=== PATIENT | female | born 1970 | race Caucasian/White ===

== ENCOUNTER 2024-05-03 09:50 | Outpatient (CLI) | payer BC, SELFPAY ==
--- NOTE | 2024-05-03 09:56 | ECHO_ITS ---
Patient Info Name: Irma Lundy Age: 54 years : 1970 Gender: Female Ht: 67 in Wt: 205 lbs BSA: 2.13 m2 HR: 65 bpm BP: 115 / 72 mmHg Heart Rhythm: Sinus Rhythm Technical Quality: Good Exam Date: 05/03/2024 10:19 AM Exam Location: Echo Lab Patient Status: Outpatient Admit Date: 05/03/2024 Staff Ordering Physician: Geneva Alcala PAC Aircraft Designer: Criselda Carrillo RDCS Attending Provider: Geneva Alcala Referring Physician: Fredrick BULLARD; Exam Type: CA echo doppler color flow Study Info Indications - chest pain, unsp Complete two-dimensional, color flow and Doppler transthoracic echocardiogram is performed. Summary 1. Complete two-dimensional, color flow and Doppler transthoracic echocardiogram is performed. 2. Left ventricular chamber dimension is normal. 3. Left ventricular systolic function is normal, estimated at 60-65%. 4. The left ventricular diastolic function is normal. 5. E/e' 7 is not elevated. 6. Left atrial chamber dimension is mildly enlarged. 7. There is mild aortic valve sclerosis. 8. The mitral valve has mildly calcified annulus. 9. No pulmonary hypertension, estimated pulmonary arterial systolic pressure is 17 mmHg. Left Ventricle E/e' 7 is not elevated. Left ventricular chamber dimension is normal. Left ventricular systolic function is normal, estimated at 60-65%. The left ventricular diastolic function is normal. Right Ventricle Right ventricular chamber dimension is normal. Right ventricular systolic function is normal and with normal TAPSE 2.8 cm. Left Atria Left atrial chamber dimension is mildly enlarged. Right Atria Right atrial chamber dimension is normal. Aortic Valve The aortic valve is trileaflet. There is mild aortic valve sclerosis. There is no aortic valve stenosis. There is no aortic valve regurgitation. Pulmonic Valve There is no pulmonic regurgitation. Mitral Valve The mitral valve has mildly calcified annulus. There is no mitral valve stenosis. There is no mitral valve regurgitation. Tricuspid Valve There is no tricuspid valve regurgitation. No pulmonary hypertension, estimated pulmonary arterial systolic pressure is 17 mmHg. Pericardium/Pleural There is no pericardial effusion. Inferior Vena Cava Normal inferior vena cava with >50% collapse upon inspiration consistent with normal right atrial pressure, 5 mmHg. Aorta The aortic root size at the sinus of Valsalva is normal. Left Ventricular Outflow Tract Name Value Normal LVOT 2D LVOT Diameter 1.9 cm LVOT Doppler LVOT Peak Gradient 4 mmHg LVOT Mean Gradient 2 mmHg LVOT VTI 24 cm LVOT VTI/AV VTI Ratio 0.9 LVOT Stroke Volume 71 ml LVOT CO 4.2 l/min LVOT CI 2.0 l/min/m2 Pulmonic Valve Name Value Normal PV Doppler PV Peak Gradient 2 mmHg Mitral Valve Name Value Normal MV Doppler MV Decel Estill 349 cm/s2 MV PHT 67 ms MV Area (PHT) 3.3 cm2 4.0-5.0 MV Diastolic Function MV E Peak Velocity 81 cm/s MV A Peak Velocity 66 cm/s MV E/A 1.2 MV Decel Time 232 ms MV Annular TDI MV E/e' (Septal) 8.8 <=8.0 MV E/e' (Lateral) 7.2 <=8.0 MV E/e' (Average) 8.0 Tricuspid Valve Name Value Normal TV Regurgitation Doppler TR Peak Velocity 177 cm/s TR Peak Gradient 12 mmHg Estimated PAP/RSVP RA Pressure 5 mmHg <=5 PA Systolic Pressure 17 mmHg <36 RV Systolic Pressure 17 mmHg <36 Aortic Valve Name Value Normal AV Doppler AV Peak Velocity 154 cm/s AV Peak Gradient 9 mmHg AV Mean Gradient 5 mmHg AV VTI 28 cm AV Area (Cont Eq VTI) 2.5 cm2 >=3.0 AV Area (Cont Eq Sanjay) 1.9 cm2 AV Regurgitation 2D LVOT Area 2.9 cm2 Ventricles Name Value Normal LV Dimensions 2D/MM IVS Diastolic Thickness (2D) 1.0 cm 0.6-1.0 LVID Diastole (2D) 4.5 cm 3.8-5.2 LVIW Diastolic Thickness (2D) 0.9 cm 0.6-0.9 LVID Systole (2D) 2.9 cm 2.2-3.5 LVOT Diameter 1.9 cm LV Mass (2D Cubed) 141.43 g 67.00-162.00 LV Mass Index (2D Cubed) 66 g/m2 43-95 Relative Wall Thickness (2D) 0.42 LV Fractional Shortening/Ejection Fraction 2D/MM LV Fractional Shortening (2D) 35 % 27-45 LV EF (2D Teicholz) 65 % 54-74 LV Diastolic Volume (4C MOD) 77 ml LV EF (4C MOD) 58 % LV Diastolic Volume (2C MOD) 90 ml LV EF (2C MOD) 72 % LV Diastolic Volume (BP MOD) 84 ml 46-106 LV Diastolic Volume Index (BP MOD) 39 ml/m2 29-61 LV Systolic Volume (BP MOD) 30 ml 14-42 LV Systolic Volume Index (BP MOD) 14 ml/m2 8-24 LV EF (BP MOD) 65 % 54-74 LV Diastolic Length (4C) 7.6 cm LV Systolic Length (4C) 6.1 cm LV Stroke Volume (4C MOD) 45 ml Atria Name Value Normal LA Dimensions LA Volume (4C A-L) 35 ml LA Volume (BP A-L) 34 ml RA Dimensions RA Area (4C) 12.9 cm2 <=18.0 Report Signatures
== END 2024-05-03 09:51 | disposition home or self-care (01) ==
PROVIDERS: PCP Family Medicine; Visit Provider Physician Assistant Medical
DX: I35.8 Other nonrheumatic aortic valve disorders (principal); I34.81 Nonrheumatic mitral (valve) annulus calcification
CPT/HCPCS: 93306

== ENCOUNTER 2025-03-04 07:57 | Outpatient (CLI) | payer BC, SELFPAY ==
--- NOTE | ~2025-03-04 | US_ITS ---
US abdomen complete EXAMINATION: US Abdomen Complete INDICATION: Fatty infiltration of the liver. PROCEDURE: Realtime High Resolution abdomen ultrasound. COMPARISON: No prior studies for comparison FINDINGS: Gallbladder is surgically absent. Common bile duct measures mm. Liver echotexture is increased, consistent with fatty infiltration.. Pancreas within normal limits. Pancreatic tail is obscured by bowel gas. Spleen is enlarged measuring 15 cm.. Renal echotexture is within normal limits bilaterally without hydronephrosis, contour deforming mass or renal stone. Right kidney measures 11.3 cm. Left kidney measures 9.3 cm. Visualized aspects of the aorta and IVC are within normal limits. Portal vein is patent. No sonographic Cummins's sign indicated by the technologist. IMPRESSION: 1: Fatty infiltration of the liver. 2: Status post cholecystectomy. 3: Splenomegaly. Reviewed, dictated and finalized at location O.
== END 2025-03-04 07:58 | disposition home or self-care (01) ==
LOC: MICIMG 07:58
PROVIDERS: PCP Physician Assistant Medical; Visit Provider Physician Assistant Medical
DX: K76.0 Fatty (change of) liver, not elsewhere classified (principal); R94.5 Abnormal results of liver function studies; R16.1 Splenomegaly, not elsewhere classified; Z90.49 Acquired absence of other specified parts of digestive tract
CPT/HCPCS: 76700

== ENCOUNTER 2025-05-21 01:12 | Day surgery (SDC) | payer BC, SELFPAY ==
[2025-04-30 12:45] VITALS: BMI 37.0
--- OUTSIDE RECORDS SUMMARY | 2025-05-21 01:15 | XMS_ITS | Clinical Summary ---
Author Organization [facility] Address [address] [place] [address] Care Team Providers Care Wind Project Manager Name Role Phone Enedina Ugalde MD Primary Care Provider [phone] Source Comments [facility],non-owned Affiliates and Associated Physician Practices is amultiple site organization consisting of ambulatory clinics and hospital sitesin [place], [place], [place] and [place]. This disclosure is being madepursuant to the Care Everywhere program and may not contain all information available regarding this patient. Last updated 18.[facility] Allergies No known active allergies Medications * Be aware that medications may not be up to date on this document. Alwaysverify current medications with the patient. sertraline (ZOLOFT) 100 MG tablet Take 100 mg by mouth daily. Active multivitamin daily (THERAGRAN) tablet Take 1 Tab by mouth daily with food. Active SUMAtriptan Succinate (IMITREX PO) Take by mouth as needed. 07/09/2010 Active VITAMIN D PO Take by mouth every 7 days. 07/09/2010 Active buPROPion XL 24hr (WELLBUTRIN-XL) 150 MG tablet Take 150 mg by mouth once daily. Active Sod Picosulfate-Mag Ox-Cit Acd (CLENPIQ) 10-3.5-12 MG-GM -GM/160ML SOLNIndications :Screen for colon cancer Take 1 kit by mouth as directed 320 mL 08/22/2019 Active benazepril (LOTENSIN) 5 MG tablet Take 5 mg by mouth once daily Active Active Problems No known active problems Family History Medical History Relation Name Comments Hypercholesterolemia Father Hypertension Mother Thyroid Disease Sister Relation Name Status Comments Father Mother Sister Social History Tobacco Use Types Packs/Day Years Used Date Smoking Tobacco: Never Smokeless Tobacco: Never Alcohol Use Standard Drinks/Week Comments No 0 (1 standard drink = 0.6 oz pur e alcohol) Comments No Sex and Gender Information Value Date Recorded Sex Assigned at Not on file Legal Sex Female 9:24 AM MEDICAL IMAGING DIRECTOR Gender Identity Female 01/21/2021 8:07 AM CDT Sexual Orientation Not on file Last Filed Vital Signs Vital Sign Reading Time Taken Comments Blood Pressure 121/90 01/01/2020 11:26 AM CDT Pulse 88 01/01/2020 10:10 AM CDT Temperature 36.9 C (98.4 F) 01/01/2020 10:10 AM CDT Respiratory Rate 23 01/01/2020 10:10 AM CDT Oxygen Saturation 100% 01/01/2020 11:26 AM CDT Inhaled Oxygen Concentration - - Weight 122.5 kg (270 lb) 01/01/2020 10:10 AM CDT Height 170.2 cm (5' 7) 01/01/2020 10:10 AM CDT Body Mass Index 42.29 01/01/2020 10:10 AM CDT Plan of Treatment Health Maintenance Due Date Last Done Comments COLOGUARD (AGES 45-75) - COLON CA SCREENING 1970 CT COLONOGRAPHY - COLON CA SCREENING 1970 FIT - COLON CA SCREENING 1970 FLEX SIG - COLON CA SCREENING 1970 LIPID TESTING 1970 MAMMOGRAM 1970 HIV SCREENING 1985 HEPATITIS C SCREENING 03/29/1988 DTAP/TDAP/TD VACCINES (1 - Tdap) 1989 HEPATITIS B VACCINE (1 of 3 - 19+ 3-dose series) 1989 PAP SMEAR 1991 PNEUMOCOCCAL VACCINE 50+ (1 of 1 - PCV) 2020 ZOSTER VACCINE (1 of 2) 2020 DEPRESSION SCREENING 06/12/2024 COLON MONITORING 12/31/2024 01/01/2020, , 07/18/2014, Additional history exists Colorectal Cancer Screening 12/31/2024 COVID-19 VACCINE ( - 2024- season) 2025 INFLUENZA VACCINE (#1) 2025 COLONOSCOPY - COLON CA SCREENING 12/31/2029 01/01/2020, 01/01/2020, 07/18/2014, Additional history exists HIB VACCINE Aged Out No longer eligi ble based on patient's age to complete this topic HPV VACCINE Aged Out No longer eligi ble based on patient's age to complete this topic MENINGOCOCCAL (Group B) VACCINE SHARED DECISION-MAKING Aged Out No longer eligible based on patient's age to complete this topic MENINGOCOCCAL GROUPS A/C/Y/W VACCINE Aged Out No longer eligible based on patient's age to complete this topic Procedures Procedure Name Priority Date/Time Associated Diagnosis Comments ENDOSCOPY, COLON, SCREENING Routine 01/01/2020 10:30 AM CDT Screen for colon cancer from Last 3 Months or Most Recently Relevant to Health Maintenance Results * ENDOSCOPY, COLON, SCREENING (01/01/2020 10:30 AM CDT) Report Endoscopy POC _ Patient Name: Irma Lundy Procedure Date: 01/01/2020 10:30 AM Date of : 1970 Admit Type: Outpatient Age: 49 Gender: Female Attending MD: Edwin Hodge MD _ Procedure: Colonoscopy Indications: Screening for colorectal malignant neoplasm, High risk colon cancer surveillance: Personal history of colonic polyps, Last colonoscopy: 2014 Providers: Edwin Hodge MD (Doctor) Referring MD: Benji Grimes MD (Referring MD) Medicines: Monitored Anesthesia Care Complications: No immediate complications. Estimated blood loss: None. _ Procedure: Pre-Anesthesia Assessment: - Prior to the procedure, a History and Physical was performed, and patient medications and allergies were reviewed. The patient is competent. The risks and benefits of the procedure and the sedation options and risks were discussed with the patient. All questions were answered and informed consent was obtained. Patient identification and proposed procedure were verified by the physician, the nurse and the glove operator in the procedure room. Mental Status Examination: alert and oriented. Airway Examination: normal oropharyngeal airway and neck mobility. Respiratory Examination: clear to auscultation. CV Examination: normal. Prophylactic Antibiotics: The patient does not require prophylactic antibiotics. Prior Anticoagulants: The patient has taken no previous anticoagulant or antiplatelet agents. ASA Grade Assessment: III - A patient with severe systemic disease. After reviewing the risks and benefits, the patient was deemed in satisfactory condition to undergo the procedure. The anesthesia plan was to use monitored anesthesia care (MAC). Immediately prior to administration of medications, the patient was re-assessed for adequacy to receive sedatives. The heart rate, respiratory rate, oxygen saturations, blood pressure, adequacy of pulmonary ventilation, and response to care were monitored throughout the procedure. The physical status of the patient was re-assessed after the procedure. After I obtained informed consent, the scope was passed under direct vision. Throughout the procedure, the patient's blood pressure, pulse, and oxygen saturations were monitored continuously. The Colonoscope was introduced through the anus and advanced to the cecum, identified by appendiceal orifice and ileocecal valve. The colonoscopy was performed without difficulty. The patient tolerated the procedure well. The quality of the bowel preparation was excellent. The ileocecal valve, appendiceal orifice, and rectum were photographed. Findings: Hemorrhoids were found on perianal exam. Three sessile polyps were found in the transverse colon and cecum. The polyps were 2 to 4 mm in size. These polyps were removed with a cold biopsy forceps. Resection and retrieval were complete. Three sessile polyps were found in the rectum and sigmoid colon. The polyps were 5 to 7 mm in size. These polyps were removed with a hot snare. Resection and retrieval were complete. The descending colon, transverse colon, cecum, appendiceal orifice and ileocecal valve appeared normal. _ Impression: - Hemorrhoids found on perianal exam. - Three 2 to 4 mm polyps in the transverse colon and in the cecum, removed with a cold biopsy forceps. Resected and retrieved. - Three 5 to 7 mm polyps in the rectum and in the sigmoid colon, removed with a hot snare. Resected and retrieved. - The descending colon, transverse colon, cecum, appendiceal orifice and ileocecal valve are normal. Recommendation: - Await pathology results. - Repeat colonoscopy in 3 years for surveillance if polyps are adenomatous. - Return to primary care physician as previously scheduled. - Resume previous diet. - Continue present medications. - Patient has a contact number available for emergencies. The signs and symptoms of potential delayed complications were discussed with the patient. Return to normal activities tomorrow. Written discharge instructions were provided to the patient. Procedure Code(s): --- Professional --- 47229, Colonoscopy, flexible; with removal of tumor(s), polyp(s), or other lesion(s) by snare technique 00362, 59, Colonoscopy, flexible; with biopsy, single or multiple --- Technical --- 87290, Colonoscopy, flexible; with removal of tumor(s), polyp(s), or other lesion(s) by snare technique 85619, 59, Colonoscopy, flexible; with biopsy, single or multiple Diagnosis Code(s): --- Professional --- Z12.11, Encounter for screening for malignant neoplasm of colon Z86.010, Personal history of colonic polyps K64.9, Unspecified hemorrhoids D12.3, Benign neoplasm of transverse colon (hepatic flexure or splenic flexure) D12.0, Benign neoplasm of cecum K62.1, Rectal polyp D12.5, Benign neoplasm of sigmoid colon --- Technical --- Z12.11, Encounter for screening for malignant neoplasm of colon Z86.010, Personal history of colonic polyps K64.9, Unspecified hemorrhoids D12.3, Benign neoplasm of transverse colon (hepatic flexure or splenic flexure) D12.0, Benign neoplasm of cecum K62.1, Rectal polyp D12.5, Benign neoplasm of sigmoid colon CPT copyright 2017 [employer]. All rights reserved. The codes documented in this report are preliminary and upon wool shearer review may be revised to meet current compliance requirements. Dr. Edwin Hodge MD Edwin Hodge MD 01/01/2020 11:30:44 AM This report has been signed electronically. Number of Addenda: 0 Note Initiated On: 01/01/2020 10:30 AM [facility] ENDOSCOPY 01/01/2020 10:3 0 AM CDT Edwin Hodge MD GI PROCEDURE ORDERABLES Dev anjana Result - Final [facility] [place] [address] from Last 3 Months or Most Recently Relevant to Health Maintenance Insurance [employer] SELF PAY NO INSURANCE Member Subscriber Plan / Payer (Ef fective for All Dates) Name:Martín Lundydennise Harvey Member ID:Not on file Relation to Subscriber:Self Name:Martín Lundydennise Harvey Subscriber ID:Not on file Payer ID:Not on file Group ID:Not on file Type:Self Pay Address: [place], [place] Care Teams Wind Project Manager Relationship Specialty Start Date End Date Enedina Ugalde MD [address] [facility] [address] [place] [id number] PCP - General 01/29/21
--- OUTSIDE RECORDS SUMMARY | 2025-05-21 01:15 | XMS_ITS | Patient Health Record ---
Author Organization [facility] [employer] Address [address] [place] [address] Care Team Providers Care Tiller Man Name Role Phone Pancho Mcduffie Unavailable [phone] Reason For Referral No Information Medications Medication SIG (Take, Route, Frequency, Duration) Notes Start Date End Date Status Levothyroxine Sodium 25 MCG Tablet Oral 07/27/2022 Active buPROPion HCl ER (XL) 300 MG Tablet Extended Release 24 Hour Oral 07/27/2022 Active LUER-JUAN SYRINGE-NEEDLE 3 mL 25 x 5/8 SYRINGE, EMPTY DISPOSABLE MISCELLANEOUS *Reorder from voxapp for eRx and Interaction Alerts* 07/27/2022 Active Acamprosate Calcium 333 MG Tablet Delayed Release Oral 07/27/2022 Active Trintellix 20 MG Tablet Oral 07/27/2022 Active Benazepril-hydroCHLOR Othiazide 10-12.5 MG Tablet Oral 07/27/2022 Active Gabapentin 600 MG Tablet Oral 07/27/2022 Active Cyanocobalamin 1000 MCG/ML Solution Injection 07/27/2022 Active Sertraline HCl 100 MG Tablet Oral 07/27/2022 Active buPROPion HCl ER (SR) 150 MG Tablet Extended Release 12 Hour Oral 07/27/2022 Active Social History Sex Assigned At : Social History Observation Description Sex Assigned At Female Social History Additional Details Category Social Info Options Details Migrated Social History Migrated Social History Alcohol Intake: Heavy 07/27/2022,Tobacco Years: Never smoker 05/27/2022 Plan Of Treatment No Information Insurance Providers Payer Name Payer Address Payer Phone Subscriber Number Group Number Insured Name Patient Relationship to Insured Coverage Start Date Coverage End Date [employer] [employer] [address] [place] [phone] [id number] GIL HOROWITZ Self - patient is the insured Medical (General) History Surgical History Surgery Date(Month/Year) Endometrial ablation (91399) 06/21/1995 Other 07/28/2001 Removal of gallbladder (38761) 3
--- OUTSIDE RECORDS SUMMARY | 2025-05-21 01:15 | XMS_ITS | Data Portability ---
Author Organization [facility] [place] Address [address] [place] [address] Care Team Providers Care Business Consult Name Role Phone REBEKAH PERDUE Primary Care Provider Assessment Encounter Date Assessment Date Assessment LastModified by Organization Details LastModified Time 12/08/2020 12/08/2020 Annual gynecological exam performed. Patient will come back in a year unless there are new symptoms. Not available 11/30/2020 15:54:54 12/09/2021 12/09/2021 Annual gynecological exam performed. Patient will come back in a year unless there are new symptoms. Not available 12/09/2021 09:52:25 12/14/2022 12/14/2022 Annual gynecological exam performed. Patient will come back in a year unless there are new symptoms. Not available 12/14/2022 09:28:42 01/23/2024 01/23/2024 Annual gynecological exam performed. Patient will come back in a year unless there are new symptoms. [email or web address] Not available 01/23/2024 09:20:32 Plan of Treatment Reminders Order Date Submit Date Provider Last Modified By Organization Details Last Modified Time Details Appointments [facility] 2025 09:00A GENARO Barton Not available Not available Not available Lab None recorded. Referral None recorded. Procedures None recorded. Surgeries None recorded. Imaging MAMMO, screening , digital, bilateral 2023 024 [facility], [address], [place], [address], 07/28/2024 05:01:19 US, pelvis 2019 020 [email or web address] [place], [address], [place], [address], 01/21/2020 11:23:13 US, transvagi nal 2019 020 FREDDY [place], [address], [place], [address], 07/26/2020 05:02:23 Medication Orders Premarin 0.625 mg/gram vaginal cream 2021 [id number] [address] [facility] [facility] [address], [place], [address], 12/14/2022 09:29:46 Patient TargetsNo targets recorded. Patient InstructionsNo instructions recorded. Reason for Referral None Reported. Results Created Date Observation Date Name Description Value Unit Range Abnormal Flag Note LastModifiedBy Organization Detail LastModifiedTime 07/30/19 21 07/30/2020 , jennifer jeffrey md interpretati on Not Available [facility] [address], [place], [address], 01/21/2020 10:55:10 12/09/19 21 12/08/2020 IMAGE GUIDE D PAP AND HPV REGAR DLESS image guided Pap, HPV regardless of Pap result SEE RESULT S BELOW CASE REPOR T: Cytol ogy Gynec ologi chriss Repor t Case: [id number] Autho braydon g Provi idania: Myles Sen Colle cted: 12/08 1159 PET NUTRITION SPECIALIST Order ing Locat ion: [place] Patho log[facility] Recei dain: 12/09 0017 First Scree n: Vipin Alexandra, CT Speci men: Scree davey Pap - Image d, Cervi x STATE MENT OF ADEQU ACY: Satis facto ry for evalu ation Trans forma tion zone compo nent prese nt FINAL DIAGN OSIS: Negat jacquelyn for Intra epith elial Lesio n or Sunshine perez Elect lyndsay horn susana d by Vipin Alexandra, CT on 021 at 1:06 PM ----- ----- ----- ----- ----- ----- ----- ----- ----- ----- ----- ----- ----- ----- ----- ----- ----- ---- HPV RESUL TS: HPV mRNA E6/E7 : No HPV mRNA Detec anjana NOTE: This high risk HPV mRNA assay detec ts fourt een high- risk HPV types (16, 18, 31, 33, 35, 39, 45, 51, 52, 56, 58, 59, 66, 68) witho ut diffe renti ation . CHART ABLE COMME NT: Note: This speci men was revie wed by a Cytot echno logis t and/o r Patho logis t (as indic ated in this repor t) after evalu ation using the Thinp rep Imagi ng Syste m. CLINI CHRISS INFOR MATIO N: Menst rual Statu s: LMP (if appli cable ): Clini chriss Histo ry/Pr eviou s Pap: Type of Neopl kike (if appli cable ): Other Histo ry: Hormo luke (if appli cable ): PAP EDUCA TETE L NOTE: The Pap Test is a scree davey test with an inher ent false negat jacquelyn rate. Liqui d-bas e sampl ing may decre ase, but will not elimi jane, false negat jacquelyn resul ts. A negat jacquelyn resul t does not precl ude the prese nce and/o r devel opmen t of disea se, since the prese nce of abnor mal cells in the sampl e depen ds on the locat ion of the lesio n and sampl ing techn ique. Niko nued regul ar scree davey is the best metho d of cance r preve ntion . If repor anjana cytol ogic findi ng do not corre late with physi chriss and/o r histo rical findi ngs, furth er inves tigat ion is recom nick d, as clini quinn phillips nted. Not Available [facility] (Lab) [address], [place], [address], 12/10/2020 14:09:34 01/23/20 24 01/23/2024 IMAGE GUIDE D PAP AND HPV REGAR DLESS image guided Pap, HPV regardless of Pap result SEE RESULT S BELOW CASE REPOR T: Cytol ogy Gynec ologi chriss Repor t Case: [id number] Autho ricandi g Provi idania: Heena Levine, GARRETT Colle cted: 01/22 1018 Order ing Locat ion: [place] Patho [place] Recei dain: 01/23 0833 First Scree n: Lamont boss, Ravindra schwartz, CT Speci men: Scree davey Pap - Image d, Cervi x STATE MENT OF ADEQU ACY: Satis facto ry for evalu ation Trans forma tion zone compo nent canno t be defin itive ly ident ified due to the prese nce of atrop hy or other hormo nal junior es ----- ----- ----- ----- ----- ----- ----- ----- ----- ----- ----- ----- ----- ----- ----- ----- ----- ---- FINAL DIAGN OSIS: Negat jacquelyn for Intra epith elial Enio n or Sunshine perez (NIL) . Atrop hic martir de la o rn. Elect lyndsay meza d by Ravindra Gonzalez am, CT on 2023 at 8:35 AM ----- ----- ----- ----- ----- ----- ----- ----- ----- ----- ----- ----- ----- ----- ----- ----- ----- ---- HPV RESUL TS: HPV mRNA E6/E7 : No HPV mRNA Detec anjana NOTE: This high risk HPV mRNA assay detec ts fourt een high- risk HPV types (16, 18, 31, 33, 35, 39, 45, 51, 52, 56, 58, 59, 66, 68) witho ut diffe renti ation . COMME NT: This speci men was revie wed by a Cytot echno logis t and/o r Patho logis t (as indic ated in this repor t) after evalu ation using the Thinp rep Imagi ng Syste m. CLINI CHRISS INFOR MATIO N: Menst rual Statu s: LMP (if appli cable ): Clini chriss Histo ry/Pr eviou s Pap: Type of Neopl kike (if appli cable ): Signi fican t Clini chriss Findi ngs: Other Histo ry: Hormo luke (if appli cable ): PAP EDUCA TETE L NOTE: The Pap Test is a scree davey test with an inher ent false negat jacquelyn rate. Liqui d-bas ed sampl ing may decre ase, but will not elimi jane, false negat jacquelyn resul ts. A negat jacquelyn resul t does not precl ude the prese nce and/o r devel opmen t of disea se, since the prese nce of abnor mal cells in the sampl e depen ds on the locat ion of the lesio n and sampl ing techn ique. Niko nued regul ar scree davey is the best metho d of cance r preve ntion . If repor anjana cytol ogic findi ng do not corre late with physi chriss and/o r histo rical findi ngs, furth er inves tigat ion is recom nick d, as clini quinn phillips nted. Not Available [facility] (Lab) [address], [place], [address], 01/30/2024 09:40:19 01/21/20 US, pelvi s No observ ation record ed. jacky Solis [address], [place], [address], 05/20/2020 17:42:39 09/29/19 23 09/20/2022 MAMMO , scree davey, bilat eral No observ ation record ed. [place] [address] [place], [address], 10/05/2022 12:27:45 Result Notes None recorded. Problems Name Problem SNOMED Code Status Onset Date Resolution Date Notes Provider Name and Address Organization Details Recorded Time Vaginiti s and vulvovag initis Completed 201311/30/2020 Vaginitis and vulvovagi nitis, unspecifi ed;Practi ce ID: [id number] Megan Martínez [facility] 15:56:49 Left lower quadrant pain [id number] Completed 201311/30/2020 Abdominal pain, left lower quadrant; Practice ID: 0001 Megan Martínez [facility] 15:56:38 Screenin g for malignan t neoplasm of rectum Completed 201411/30/2020 Screening for malignant neoplasms of the rectum;Pr actice ID: 0001 Megan Martínez [facility] 15:56:42 Screenin g for malignan t neoplasm of cervix Completed 201411/30/2020 Pap Smear;Pra ctice ID: 0001 Megan Martínez [facility] 15:56:41 Speciali zed medical examinat ion Completed 201411/30/2020 Routine gynecolog ical examinati on;Practi ce ID: 0001 Megan Martínez [facility] 15:56:47 Adult health examinat ion Completed 201411/30/2020 Routine general medical examinati on at a health care facility; Practice ID: 0001 Megan Martínez [facility] 15:56:36 Mammogra phy abnormal [id number] Completed 201411/30/2020 Unspecifi ed abnormal mammogram ;Recorded Elsewhere : No Locati on: [facility] So urce: EHR Chron ic: N Practic e ID: 0001 Bill able Time: 10:59:30 AM Megan Martínez [facility] 15:56:[address] Concept Completed 201511/30/2020 Encntr for fitness services manager exam (general) (routine) w/o abn findings; Practice ID: 0001 Megan [facility] 15:56:[address] Concept Completed 201611/30/2020 Encntr for general adult medical exam w/o abnormal findings; Recorded Elsewhere : No Locati on: [facility] So urce: EHR Chron ic: N Practic e ID: 0001 Bill able Time: 09:30:00 AM Megan Martínez [facility] 15:56:44 Problem Notes None recorded. Procedures Surgical History Date Name Laterality Status Provider Name and Address Organization Details Recorded Time 023 Date of Last Mammogram completed [facility] 12/14/2022 09:30:38 021 Date of Last Pap Smear completed Tamika [facility] 12/14/2022 09:30:07 003 Cholecystectomy completed [facility] 01/23/2024 10:06:53 003 bypass of stomach completed [facility] 01/23/2024 10:07:00 colonoscopy completed GNEARO Alfaro- [address], [place], [address], [facility] 12/14/2022 09:43:29 Imaging Results None recorded. Procedure Notes None recorded. Medical Equipment None Reported. Allergies No known drug allergies Medications Name Sig Start Date Stop Date Status Note LastModified by Organization Details LastModified Time bupropion HCl SR 150 mg tablet,12 hr sustained -release TAKE 1 TABLET BY MOUTH TWICE A DAY 12/14 completed Not Available Not Available Not Available vitamin A 2,400 mcg capsule take 1 capsule by oral route every day 12/08 completed Prescrib ed Elsewher e: Yes Loca tion: Ryann lorena [facility] odify By: ana Youssef ncounter DateTime : 09/24/19 16 09:30:00 AM Not Available Not Available Not Available prednison e 10 mg tablet 01/20 completed Not Available Not Available Not Available gabapenti n 600 mg tablet TAKE 1 TABLET BY MOUTH TWICE A DAY 12/14 completed Not Available Not Available Not Available verapamil 40 mg tablet take 1 tablet by oral route 3 times every day 12/08 completed Prescrib ed Elsewher e: Yes Loca tion: Ryann lorena [facility] odify By: [email or web address] Youssef ncounter DateTime : 11/15/19 19 10:30:00 AM Not Available Not Available Not Available Adderall 15 mg tablet take 1 tablet by oral route every day before breakfas t 08/06 completed Prescrib ed Elsewher e: Yes [facility] By: ruben ocrbett DateTime : 06/01/20 12 01:00:00 PM Not Available Not Available Not Available BD Luer-Rosalba Syringe 3 mL 25 x 5/8 FOR USE WITH B-12 INJECTIO NS MONTHLY 12/14 completed Not Available Not Available Not Available BD Insulin Syringe 1 mL 25 x 1 DIRECTED 12/14 completed Not Available Not Available Not Available triamcino lone acetonide 0.5 % topical cream 01/20 completed Not Available Not Available Not Available naltrexon e 50 mg tablet TAKE 1 TABLET BY MOUTH EVERY DAY 12/09 completed Not Available Not Available Not Available clonazepa m 0.5 mg tablet TAKE 1 TABLET BY MOUTH TWICE A DAY NEEDED 12/09 completed Not Available Not Available Not Available sertralin e 100 mg tablet TAKE 1 TABLET BY MOUTH EVERY DAY active Not Available Not Available No t Available clobetaso l 0.05 % topical cream apply by topical route every day a thin layer to the affected area(s) 09/23 completed Prescrib ed Elsewher e: No Locat ion: Ryann lorena [facility] odify By: ana medina DateTime : 02/27/20 14 11:15:00 AM Not Available Not Available Not Available topiramat e 25 mg tablet TAKE 1 TABLET BY MOUTH AT BEDTIME FOR 7 DAYS THEN TAKE 1 TABLET BY MOUTH TWICE A DAY THERAFTE R 12/14 completed Not Available Not Available Not Available levothyro xine 25 mcg tablet TAKE 1 TABLET BY MOUTH EVERY DAY active Not Available Not Available No t Available oxycodone -acetamin ophen 5 mg-325 mg tablet TAKE 1 TABLET BY MOUTH EVERY 6 HOURS NEEDED FOR PAIN 01/22 completed Not Available Not Available Not Available chlordiaz epoxide 25 mg capsule TAKE ONE CAPSULE BY MOUTH FOUR TIMES DAILY NEEDED FOR WITHDRAW AL 12/14 completed Not Available Not Available Not Available Zoloft 50 mg tablet take 1 tablet by oral route every day 12/08 completed Prescrib ed Elsewher e: Yes Loca tion: [facility] odify By: [email or web address] trick En counter DateTime : 06/01/20 12 01:00:00 PM Not Available Not Available Not Available BD Luer-Rosalba Syringe 3 mL 23 gauge x 1 1/2 USE WITH B12 INJECTIO NS. 12/08 completed Not Available Not Available Not Available gabapenti n 800 mg tablet TAKE 1 TABLET BY MOUTH 4 TIMES A DAY 12/09 completed Not Available Not Available Not Available cyanocoba simi (vit B-12) 1,000 mcg/mL injection solution INJECT 1 ML (1000 MCG) SUBCUTAN EOUSLY MONTHLY active Not Available Not Available No t Available Wellbutri n 75 mg tablet take 1 tablet by oral route 3 times every day 09/23 completed Prescrib ed Elsewher e: Yes Loca tion: [facility] odify By: ana medina DateTime : 05/06/20 14 11:30:00 AM Not Available Not Available Not Available BD Luer-Rosalba Syringe 3 mL 25 gauge x 1 USE WITH B12 INJECTIO NS MONTHLY active Not Available Not Available No t Available gabapenti n 300 mg capsule TAKE 1 CAPSULE BY MOUTH NIGHTLY X 2 NIGHTS, THEN 1 TWICE A DAY, THEN 1 THREE TIMES A DAY. 12/08 completed Not Available Not Available Not Available chlordiaz epoxide 10 mg capsule TAKE 1 CAPSULE BY MOUTH 4 TIMES A DAY NEEDED FOR ANXIETY FOR UP TO 5 DAYS 12/14 completed Not Available Not Available Not Available ergocalci ferol (vitamin D2) 1,250 mcg (50,000 unit) capsule TAKE 1 CAPSULE BY MOUTH WEEKLY 12/14 completed Not Available Not Available Not Available ibuprofen 600 mg tablet TAKE 1 TABLET BY MOUTH EVERY 6 HOURS NEEDED FOR PAIN 01/22 completed Not Available Not Available Not Available methylpre dnisolone 4 mg tablets in a dose pack 01/20 completed Not Available Not Available Not Available albuterol sulfate HFA 90 mcg/actua tion aerosol inhaler 01/20 completed Not Available Not Available Not Available Terazol 7 0.4 % vaginal cream insert 1 applicat orful by vaginal route every day for 7 days at bedtime 03/09 completed Prescrib ed Elsewher e: No Locat ion: [facility] odify By: cmedical Encount er DateTime : 03/03/20 14 02:04:58 PM Not Available Not Available Not Available ondansetr on 4 mg disintegr ating tablet TAKE 1 TABLET BY MOUTH EVERY 6 HOURS NEEDED FOR NAUSEA 01/22 completed Not Available Not Available Not Available benazepri l 10 mg-hydroc hlorothia zide 12.5 mg tablet TAKE 1 TABLET BY MOUTH EVERY DAY active Not Available Not Available No t Available buspirone 15 mg tablet 01/20 completed Not Available Not Available Not Available hydroxyzi ne pamoate 25 mg capsule 01/20 completed Not Available Not Available Not Available Vitamin C 500 mg capsule,e xtended release 12/08 completed Prescrib ed Elsewher e: Yes [facility] By: lsloan Lorena ncounter DateTime : 09/24/19 16 09:30:00 AM Not Available Not Available Not Available iron ER 325 mg (65 mg iron) capsule,e xtended release 12/08 completed Prescrib ed Elsewher e: Yes Loca tion: [facility] odify By: everette corbett DateTime : 08/29/19 15 08:30:00 AM Not Available Not Available Not Available Premarin 0.625 mg/gram vaginal cream Insert 0.5 applicat or full vaginall y nightly x 14 nights; then, twice weekly for rosana king. 12/14 completed Not Available Not Available Not Available bupropion HCl XL 300 mg 24 hr tablet, extended release TAKE 1 TABLET BY MOUTH EVERY DAY IN THE MORNING 12/14 completed Not Available Not Available Not Available acamprosa te 333 mg tablet,de layed release TAKE 2 TABLETS BY MOUTH 3 TIMES A DAY 12/14 completed Not Available Not Available Not Available chlorhexi dine gluconate 0.12 % mouthwash SWISH 10 MLS BY MOUTH THEN SPIT OUT, USE 3 TIMES A DAY *DO NOT SWALLOW* 01/22 completed Not Available Not Available Not Available Zoloft 12/08 completed Not Available Not Available Not Available Vitamin C 01/20 completed Not Available Not Available Not Available vitamin A 01/20 completed Not Available Not Available Not Available iron 01/20 completed Not Available Not Available Not Available verapamil 01/20 completed Not Available Not Available Not Available BuSpar 12/08 completed Not Available Not Available Not Available sodium fluoride 1.1 % dental paste USE DIRECTED 12/14 completed Not Available Not Available Not Available Vitamin D3 10 mcg (400 unit) capsule Take by oral route. 01/20 completed Not Available Not Available Not Available Vitamin D3 125 mcg (5,000 unit) tablet 12/08 completed Prescrib ed Elsewher e: Yes Loca tion: [facility] odify By: ana medina DateTime : 09/24/19 16 09:30:00 AM Not Available Not Available Not Available Vitamin B-1 (mononitr ate) 100 mg tablet TAKE 1 TABLET EVERY DAY BY ORAL ROUTE FOR 30 DAYS. 12/08 completed Not Available Not Available Not Available Gablofen 40,000 mcg/20 mL (2,000 mcg/mL) intrathec al syringe infuse by cont intrathe chriss inf route (90 mcg/day) 10/07 completed Prescrib ed Garry e: Yes Loca [facility]ion: [facility] odblake By: ana medina DateTime : 09/24/19 09:30:00 AM Not Available Not Available Not Available Trintelli x 20 mg tablet TAKE 1 TABLET BY MOUTH EVERY DAY 12/14 completed Not Available Not Available Not Available Vitals Date Recorded Systolic And Diastolic Provider Name and Address Organization Details Last Updated DateTime 12/08/2020 130/80 mm[Hg] Phylicia Ladd, [facility]- [address], [place], [address], [facility] 12/08/2020 11:18:52 Date Recorded Body height Body mass index (BMI) Body weight Provider Name and Address Organization Details Last Updated DateTime 12/08/2020 171.45 cm 44 kg/m2 721457.83 g Megan Martínez [facility] 12/08/2020 11:04:36 Date Recorded Body height Body mass index (BMI) Body weight Systolic And Diastolic Provider Name and Address Organization Details Last Updated DateTime 12/09/2021 171.45 cm 40.1 kg/m2 463870.3 g 110/84 mm[Hg] Megan Martínez [facility] 12/09/2021 09:56:19 Date Recorded Body height Body mass index (BMI) Body weight Systolic And Diastolic Provider Name and Address Organization Details Last Updated DateTime 12/14/2022 171.45 cm 33.3 kg/m2 24600.95 g 110/75 mm[Hg] Tamika Avalos [facility] 12/14/2022 09:29:06 Date Recorded Body height Body mass index (BMI) Body weight Systolic And Diastolic Provider Name and Address Organization Details Last Updated DateTime 01/21/2020 171.45 cm 41.7 kg/m2 979511.94 g 125/86 mm[Hg] Tabitha Phillips [facility] 01/21/2020 11:03:44 Date Recorded Body height Body mass index (BMI) Body weight Systolic And Diastolic Provider Name and Address Organization Details Last Updated DateTime 01/23/2024 170.18 cm 30.1 kg/m2 99716.74 g 102/66 mm[Hg] Leesa Baig [facility] 01/23/2024 10:04:28 Social History Question Answer Notes LastModified by [employer] Details LastModified Time Tobacco Smoking Status Never Smoker Tabitha Phillips thad, [facility] 01/20/2020 17:04:55 Are You Blind Or Do You Have Difficulty Seeing? No Information n ot available 11/30/2020 What Is Your Level Of Caffeine Consumption? Occasional Information not available 11/30/2020 In The 14 Days Before Symptom Onset, Have You Had Close Contact With A Laboratory-confirm ed COVID-19 While That Case Was Ill? No Information n ot available 12/14/2022 In The 14 Days Before Symptom Onset, Have You Had Close Contact With A Person Who Is Under Investigation For COVID-19 While That Person Was Ill? No Information not available 12/14/2022 Have You Been To An Area Known To Be High Risk For COVID-19? No Information not available 12/14/2022 Are You Deaf Or Do You Have Serious Difficulty Hearing? No Information not available 11/30/2020 What Type Of Diet Are You Following? REGULAR Information n ot available 11/30/2020 Do You Use Your Seat Belt Or Car Seat Routinely? Yes Information not available 11/30/2020 Do You Have Smoke And Carbon Monoxide Detectors In Your Home? Yes Information not available 11/30/2020 Do You Use Sunscreen Routinely? Yes Information not available 11/30/2020 Sex: Unknown Functional Status Question Answer Note LastModified by Organizat ion Details LastModified Time Do you use any illicit or recreational drugs? No Information not available 11/30/2020 What is your level of alcohol consumption? Occasional Information not available 11/30/2020 Are you able to walk independently without assistance or assistive devices? YESWOREST Information not available 11/30/2020 What is your exercise level? Occasional Information not available 11/30/2020 Mental Status Question Answer Note LastModified by Organization D etails LastModified Time Do you feel stressed (tense, restless, nervous, or anxious, or unable to sleep at night)? [id number] Information not available 11/30/2020 Family History Relationship Description Onset Age of this Age Resolved Age Notes LastModified by Organization Details LastModified Time Mother Hypertensive disorder [email or web address] Not available 2019 17:03:39 Mother Disorder of thyroid gland [email or web address] Not available 2019 17:03:57 Father Hypertensive disorder [email or web address] Not available 2019 17:03:39 Maternal Grandmother Hypertensive disorder [email or web address] Not available 2019 17:03:39 Paternal Grandmother Hypertensive disorder [email or web address] Not available 2019 17:03:39 Paternal Grandmother Carcinoma in situ of breast [email or web address] Not available 2019 17:04:52 Sister Disorder of thyroid gland [email or web address] Not available 2019 17:03:57 Sister Asthma [email or web address] Not available 17:04:09 Sister Uterine prolapse [email or web address] Not available 2019 17:04:24 Son Asthma [email or web address] Not available 17:04:09 Medical History Condition Response Hypertension Y Gynecological History Statement/Question Response Abnormal Pap N Date of Last Mammogram 09/20/2022 Date of LMP 06/12/2019 STIs/STDs N HPV Vaccine N Colposcopy Current Control Method Menopause If Post Menopausal, Age at Menopause 49 Date of Last Colonoscopy Sexually Active? Y Menses Monthly N Date of DEXA bone scan Age of first menstrual cycle 11 Date of Last Pap Smear 12/08/2020 Sexual Problems? Y LMP Unknown Obstetrics History GPAL:G 2 P 1 0 1 1 Type Value Full Term 1 Spontaneous 1 Living 1 Total 2 Past Encounters Encounter ID Performer Location Encounter Start Date Encounter Closed Date Diagnosis/Indication Diagnosis SNOMED-CT Code Diagnosis ICD10 Code Diagnosis IMO Codes Diagnosis Note [id number] Phylicia Ladd [facility] [address] [address] 12/05/2019 10:53:40 12/05/2019 11:49:07 Gynecologic examination 08278176 Z01.419 N92.6 Suggested Calcium with Vitamin D 1200-1500m g daily. Patient advised to get an annual flu shot in the fall and she could obtain at [facility] or [facility] care clinic. Also to obtain TDap vaccinatio n if you have not had one in the last 10 years. Recommend yearly mammograms . Encouraged monthly self breast exams. Encourage safe sexual practices, to use condoms and limit partners if not already in a monogamous relationsh ip. Engage in daily exercise of low impact aerobic exercise 45-60 minutes 4-5 times weekly. Avoid tobacco and illicit drugs as well as using moderation with alcohol intake less than 1-2 8 oz beverages daily. This lifestyle behavior pattern will lead to less health conditions and longer life span. If BMI greater than 25 weight watchers or dietary consult advised. All questions have been answered. Patient appears to understand informatio n, but if you have any questions please call or respond to this email. Periods q2-3mos. FSH/LH ordered to assess ovarian function Hx of hypothyroi dism but not compliant synthroid. Hx of AUD-in treatment now. Screening mammography [id number] Z12.31 [id number] Waldo Vega MD [place] [address] [address] 01/21/2020 10:27:13 01/21/2020 10:58:45 Abnormal uterine bleeding [id number] 9100 N93.9 [id number] GENARO [facility] [address] [address] 01/21/2020 10:27:29 01/21/2020 14:03:09 Abnormal uterine bleeding [id number] 9100 N93.9 Patient is a 49yo white female. She came in at her last [employer] & mentioned that she was having menses q3mos coupled with vasomotor sx's for menopause. She had not had 12 consecutiv e months of absent menses. We completed FSH/LH which indicated likely menopause. A TVUS was recommende d which was completed today & appears to be WNL. We discussed risk of precancers /cancers/h yperplasia of endometria l lining. We discussed additional labs today. We discussed trial of progestero ne therapy )PO nightly or IUD) daily so as to provide a protective effect on lining of uterus to decrease risks of endometria l cancers etc. She voiced she would like to monitor for now. For this reason, I recommende d menstrual diary & a repeat TVUS in 6mos with OV to monitor. Call if any significan t changes as an EMBx at some point might also be necessary despite WNL TVUS especially if we decide to pursue IUD therapy. She voices understand ing and is agreeable to current plan understand ing risks. I will call if any further input is added to POC by MD. Time spent in visit is a total of 26 mins with at least 50% of visit consisting of counseling and review of plan of care. [id number] Phylicia Ladd [facility] [address] [address] 12/08/2020 10:22:46 12/08/2020 11:20:25 Gynecologic examination [id number] Z01.419 N92.6 Suggested Calcium with Vitamin D 1200-1500m g daily. Patient advised to get an annual flu shot in the fall and she could obtain at [facility] or [facility] clinic. Also to obtain TDap vaccinatio n if you have not had one in the last 10 years. Recommend yearly mammograms . Encouraged monthly self breast exams. Encourage safe sexual practices, to use condoms and limit partners if not already in a monogamous relationsh ip. Engage in daily exercise of low impact aerobic exercise 45-60 minutes 4-5 times weekly. Avoid tobacco and illicit drugs as well as using moderation with alcohol intake less than 1-2 8 oz beverages daily. This lifestyle behavior pattern will lead to less health conditions and longer life span. If BMI greater than 25 weight watchers or dietary consult advised. All questions have been answered. Patient appears to understand informatio n, but if you have any questions please call or respond to this email. LMP: officially menopausal as absence of 12mos consecutiv e.No menopause sx's except slightly less lubricatio n during sex.Colon UTD 2020Mammo orderedNo other issues or concernsOp ts for pap/hpv this year [id number] Phylicia Ladd [facility] [address] [address] 12/09/2021 09:39:57 12/09/2021 10:35:13 Gynecologic examination [id number] Z01.419 Z11.51 Suggested Calcium with Vitamin D 1200-1500m g daily. Patient advised to get an annual flu shot in the fall and she could obtain at [facility] or [facility]. Also to obtain TDap vaccinatio n if you have not had one in the last 10 years. Recommend yearly mammograms . Encouraged monthly self breast exams. Encourage safe sexual practices, to use condoms and limit partners if not already in a monogamous relationsh ip. Engage in daily exercise of low impact aerobic exercise 45-60 minutes 4-5 times weekly. Avoid tobacco and illicit drugs as well as using moderation with alcohol intake less than 1-2 8 oz beverages daily. This lifestyle behavior pattern will lead to less health conditions and longer life span. If BMI greater than 25 weight watchers or dietary consult advised. All questions have been answered. Patient appears to understand informatio n, but if you have any questions please call or respond to this email. Pap/hpv due q3yrs unless otherwise indicated per asccpSTD Screen declined monogamous Genetic Screen discussedC olon Screen UTD PCP 2020Dexa Screen WNL age 34yo, did it due to gastric bypassRout ine Labs UTD PCPMammo ordered Dyspareunia [id number] N94 .10 Trial of Vag estrogen therapy along with crisco daily for moisturizi ng.Call if too expensive & we will need your formulary to see what is covered.Ca n consider Trial of Testim gel if need additional libido boost or if the vag e-therapy has achieved our goals. Counseled on r/b's, most common side effects of this therapy with instructio ns to stop medication with any significan t abnormal change in mood especially with thoughts of suicide/se lf-harm/carmen rm to others. Understand ing verbalized . [id number] GENARO [facility] [address] [address] 12/14/2022 09:19:37 12/14/2022 09:55:39 Gynecologic examination [id number] Z01.419 Z11.51 Suggested Calcium with Vitamin D 1200-1500m g daily. Patient advised to get an annual flu shot in the fall and she could obtain at [facility] or [facility] care clinic. Also to obtain TDap vaccinatio n if you have not had one in the last 10 years. Recommend yearly mammograms . Encouraged monthly self breast exams. Encourage safe sexual practices, to use condoms and limit partners if not already in a monogamous relationsh ip. Engage in daily exercise of low impact aerobic exercise 45-60 minutes 4-5 times weekly. Avoid tobacco and illicit drugs as well as using moderation with alcohol intake less than 1-2 8 oz beverages daily. This lifestyle behavior pattern will lead to less health conditions and longer life span. If BMI greater than 25 weight watchers or dietary consult advised. All questions have been answered. Patient appears to understand informatio n, but if you have any questions please call or respond to this email. Pap/hpv due q3yrs unless otherwise indicated per asccp (due 2023)STD Screen declined monogamous Genetic Screen discussedC olon Screen UTD PCP 2020Dexa Screen WNL age 34yo, did it due to gastric bypassRout ine Labs UTD PCPMammo UTD PCP [id number] GENARO Mendez [place] [address] [address] 01/23/2024 09:58:52 01/23/2024 12:20:04 Gynecologic examination [id number] Z01.419 WWEpostmen opausaldec lined STI screenpap updatedmam mogram order givencolon cancer screening discussed, PCP on topical compounded HRT, obtaining through online provider. Recommende d oral progestero ne if using topical estrogen for endometria l protection . Discussed risk of endometria l cancer with unopposed estrogen. She declined oral progestero ne at this time but states she will discuss with her other provider. Do monthly self breast exams.It is advised to get annual flu shot in the fall and she could obtain at local pharmacy. If you haven't received the Tdap vaccine in the last 10 years you should obtain one as well.Have mammogram yearly and stay up to date on colon cancer screening. Engage in regular exercise. Avoid tobacco and illicit drugs.This lifestyle behavior pattern will lead to less health conditions and longer life span. If BMI greater than 25 dietary consult advised.Qu estions have been answered Screening for malignant neoplasm of breast [id number] Z12.39 Health Concerns Section Related Observation LastModified by Organization Detai ls LastModified Time None Recorded Concern Status LastModified by Organization Details LastModified Time None Recorded Advance Directives Directive None Recorded Payers Insurance Date Sequence Insurance Name Policy Number Policy Ray Covered Member ID Ray Member ID Guarantor Name 12/05/2022 1 [place] [id number] Zach Lundy [id number] Irma Kamron 01/20/2024 1 [place] 105 Zach Lundy [id number] Irma Kamron Notes Date Note Type Note Provider Name and Address Organization Details Recorded Time 0 text/html ROS as noted in the HPI Here for TVUS Follow up for AUB. [facility]ylicia Ladd [facility] [address], [place], [address], [facility] 01/21/2020 13:27:48 1 text/html Annual Shift Production Associate Post-MenopausalReported by PatientGenitourinary symptomsFor menopausal symptoms, patient reportsno menopausal symptomsandnormal vaginal lubrication. For vaginal bleeding, patient reportshistory of menopause having occurredandno history of post menopausal bleeding. For urinary symptoms, patient reportsno hematuria,no incontinence,no nocturia, andno urinary frequency. For vulva, patient reportsno genital lesionandno vulvar atrophy. For vagina, patient reportsnormal vaginal dischargeandno vaginal atrophy.Breast symptomsFor breast, patient reportsno breast lump,no nipple discharge, andno breast pain.Psychological symptomsFor sexual complaints, patient reportsno sexual complaints. For psychological symptoms, patient reportsno depressionandno anxiety.Preventative measuresFor preventive measures, patient reportsencourage regular mammograms starting age 40,encourage self breast examination,encourage regular exercise,encourage no tobacco use,needs to schedule mammogram, andhistory of recent colonoscopy (2019). Phylicia Ladd [facility] [address], [place], [address], [facility] 12/08/2020 11:19:07 2 text/html Annual Shift Production Associate Post-MenopausalReported by PatientGenitourinary symptomsFor menopausal symptoms, patient reportsno menopausal symptomsandnormal vaginal lubrication. For vaginal bleeding, patient reportshistory of menopause having occurredandno history of post menopausal bleeding. For urinary symptoms, patient reportsno hematuria,no incontinence,no nocturia, andno urinary frequency. For vulva, patient reportsno genital lesionandno vulvar atrophy. For vagina, patient reportsnormal vaginal dischargeandno vaginal atrophy.Breast symptomsFor breast, patient reportsno breast lump,no nipple discharge, andno breast pain.Psychological symptomsFor sexual complaints, patient reportsinhibited or absent female orgasmandpain during intercoursebut reportsno sexual complaints. For psychological symptoms, patient reportsno depressionandno anxiety.Preventative measuresFor preventive measures, patient reportsencourage regular mammograms starting age 40,encourage self breast examination,encourage regular exercise, andencourage no tobacco use. Phylicia Ladd [facility] [address], [place], [address], [facility] 12/09/2021 10:14:55 3 text/html Annual Shift Production Associate Post-MenopausalReported by PatientGenitourinary symptomsFor menopausal symptoms, patient reportsno menopausal symptomsandnormal vaginal lubrication. For vaginal bleeding, patient reportshistory of menopause having occurredandno history of post menopausal bleeding. For urinary symptoms, patient reportsno hematuria,no incontinence,no nocturia, andno urinary frequency. For vulva, patient reportsno genital lesionandno vulvar atrophy. For vagina, patient reportsnormal vaginal dischargeandno vaginal atrophy.Breast symptomsFor breast, patient reportsno breast lump,no nipple discharge, andno breast pain.Psychological symptomsFor sexual complaints, patient reportsno sexual complaints. For psychological symptoms, patient reportsno depressionandno anxiety.Preventative measuresFor preventive measures, patient reportsencourage regular mammograms starting age 40,encourage self breast examination,encourage regular exercise,encourage no tobacco use,mammogram performed within the past year, andhistory of recent colonoscopy. Phylicia Ladd [facility] [address], [place], [address], [facility] 12/14/2022 09:49:31 4 text/html Annual Shift Production Associate Post-MenopausalReported by PatientGenitourinary symptomsFor menopausal symptoms, patient reportsno menopausal symptomsandnormal vaginal lubrication. For vaginal bleeding, patient reportshistory of menopause having occurredandno history of post menopausal bleeding. For urinary symptoms, patient reportsno hematuria,no incontinence,no nocturia, andno urinary frequency. For vulva, patient reportsno genital lesionandno vulvar atrophy. For vagina, patient reportsnormal vaginal dischargeandno vaginal atrophy.Breast symptomsFor breast, patient reportsno breast lump,no nipple discharge, andno breast pain.Psychological symptomsFor sexual complaints, patient reportsno sexual complaints. For psychological symptoms, patient reportsno depressionandno anxiety.Preventative measuresFor preventive measures, patient reportsencourage regular mammograms starting age 40,encourage self breast examination,encourage regular exercise, andencourage no tobacco use.53yo WWEpostmenopausallast pap 11/2020 : nilm, HPV (-)mammogram olon cancer screening - PCP on topical compounded estrogen/progesterone/DHE A cream through online HRT clinic. GENARO Mendez [address], [place], [address], [place] [facility] 01/23/2024 12:02:47 OBGyn Episode Ob Episode Information Episode Created Date Number of Fetuses Patient Bloodtype Patient rh Status Prepregnancy Weight lbs Domestic Partner Domestic Partner Phone Father Name Stock Counter Status 01/20/20 20 1 CLOSED Fetus Data First Name Last Name Admitted to NICU Weight (g) Sex Living Outcome Pediatric Complications Fetus ID Race Codes Race Delivery Type 3288.54 2 M Full Term [id number] Primary Cosmo Calculation Initial Cosmo Date Initial Exam Date Initial Exam Provider Initial Ultrasound Date Last Menstrual Period Date Ultra Sound Weeks Gestation 0 Eighteen To Twenty Week Cosmo Update Ultra Sound Date Fundal Height At Umbil Quickening Date Ultra Sound Latest Weeks Gestation Final Cosmo Confirmed By Final Cosmo Confirmed Date Final Cosmo Date Ultra Sound Latest Days Gestation 0 0 Menstrual History Last Menstrual Date Menses Monthly On Bcp Conception Prior Menses Frequency Hcg Plus Date Menarche Onset Age Delivery Information Delivery Date Delivery Type Labor Anesthesia Weeks Gestation Incision Type Labor Labor Length Hrs Delivered By Post Complications Tubal Sterilization Discharge Date Comments 7 40 Discharge Information Feeding Method Contraceptive Method Maternal HG B and HCT Levels Ob Episode Information Episode Created Date Number of Fetuses Patient Bloodtype Patient rh Status Prepregnancy Weight lbs Domestic Partner Domestic Partner Phone Father Name Stock Counter Status 01/20/20 20 1 CLOSED Fetus Data First Name Last Name Admitted to NICU Weight (g) Sex Living Outcome Pediatric Complications Fetus ID Race Codes Race Delivery Type , Spontane ous [id number] Cosmo Calculation Initial Cosmo Date Initial Exam Date Initial Exam Provider Initial Ultrasound Date Last Menstrual Period Date Ultra Sound Weeks Gestation 0 Eighteen To Twenty Week Cosmo Update Ultra Sound Date Fundal Height At Umbil Quickening Date Ultra Sound Latest Weeks Gestation Final Cosmo Confirmed By Final Cosmo Confirmed Date Final Cosmo Date Ultra Sound Latest Days Gestation 0 0 Menstrual History Last Menstrual Date Menses Monthly On Bcp Conception Prior Menses Frequency Hcg Plus Date Menarche Onset Age Delivery Information Delivery Date Delivery Type Labor Anesthesia Weeks Gestation Incision Type Labor Labor Length Hrs Delivered By Post Complications Tubal Sterilization Discharge Date Comments 6 Discharge Information Feeding Method Contraceptive Method Maternal HG B and HCT Levels
--- OUTSIDE RECORDS SUMMARY | 2025-05-21 01:15 | XMS_ITS | Clinical Summary ---
Author Organization [facility] Address [address] [place] [address] Care Team Providers Care Construction Supervisor/Carpenter Name Role Phone Geneva Alcala PA-C Primary Care Provider [phone] Allergies No known active allergies Medications buPROPion XL (WELLBUTRIN XL) 300 MG 24 hr tablet Take 300 mg by mouth daily. 04/13/2022 Active cyanocobalamin (B-12) 1000 MCG/ML injection Inject 1,000 mcg into the skin monthly. 04/29/2022 Active TRINTELLIX 20 MG tablet Take 20 mg by mouth daily. 03/30/2022 Active benazepril-hydro CHLOROthiazide (LOTENSIN HCT) 10-12.5 MG tablet Take 1 tablet by mouth daily. 30 tablet 08/16/2022 Active thiamine 100 MG Tab Take 1 tablet (100 mg total) by mouth daily. 30 tablet 08/16/2022 Active folic acid (FOLVITE) 1 MG tablet Take 1 tablet (1 mg total) by mouth daily. 30 tablet 08/16/2022 Active Multiple Vitamin (MULTIVITAMIN ADULT) Tab Take 1 tablet by mouth daily. 30 tablet 08/16/2022 Active Active Problems Problem Noted Date Diagnosed Date Alcohol withdrawal 05/10/2022 Hypertension 05/10/2022 Hypothyroidism 05/10/2022 Family History Medical History Relation Comments Coronary artery disease Father Breast Cancer Paternal Grandmother Relation Status Comments Father Paternal Grandmother Social History Tobacco Use Types Packs/Day Years Used Date Smoking Tobacco: Never Smokeless Tobacco: Never Tobacco Cessation:Counseling Given: Not Answered Alcohol Use Standard Drinks/Week Comments Yes 25 (1 standard drink = 0.6 oz pu re alcohol) Comments No Sex and Gender Information Value Date Recorded Sex Assigned at Not on file 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 Gender Identity Not on file Sexual Orientation Not on file Last Filed Vital Signs Vital Sign Reading Time Taken Comments Blood Pressure 145/86 01/13/2025 3:34 PM CDT Pulse 72 01/13/2025 3:34 PM CDT Temperature 36.3 C (97.3 F) 01/13/2025 11:30 AM CDT Respiratory Rate 16 01/13/2025 3:34 PM CDT Oxygen Saturation 96% 01/13/2025 3:34 PM CDT Inhaled Oxygen Concentration - - Weight 104.3 kg (230 lb) 01/13/2025 11:30 AM CDT Height 170.2 cm (5' 7) 01/13/2025 11:30 AM CDT Body Mass Index 36.02 01/13/2025 11:30 AM CDT Plan of Treatment Health Maintenance Due Date Last Done Comments Colorectal Cancer Screening Colonoscopy (10 Years) 1970 Annual Physical 1973 Hepatitis C 1988 DTaP, Tdap and Td Vaccines ( 1 - Tdap) 1989 Hepatitis B Vaccines (1 of 3 - 19+ 3-dose series) 1989 Cervical Cancer Screening Pa p with HPV Testing (Age 30 to 64) Every 5 Years 2000 Pneumococcal Vaccine: 50+ Years (1 of 1 - PCV) 2020 Zoster Vaccines (1 of 2) 2020 Mammogram Screening 09/20/2024 09/20/2022 COVID-19 Vaccine (1 - 2024-2 6 season) 2025 Influenza Adult (#1) 2025 Cervical Cancer Screening Pa p Smear (Age 30 to 64) Every 3 Years 01/22/2027 01/23/2024, 12/08/2020 Cervical Cancer Screening wi th HPV 01/22/2027 Hepatitis A Vaccines Aged Out No long er eligible based on patient's age to complete this topic Meningococcal B Vaccine Aged Out No l onger eligible based on patient's age to complete this topic Meningococcal Vaccine Aged Out No emmett víctor eligible based on patient's age to complete this topic RSV Immunizations Under 20 Months Aged Out No longer eligible b ased on patient's age to complete this topic Procedures Procedure Name Priority Date/Time Associated Diagnosis Comments MG SCREENING W APARNA ERIK DIGI Routine 09/20/2022 9:14 AM CDT Encounter for screening mammogram for malignant neoplasm of breast from Last 3 Months or Most Recently Relevant to Health Maintenance Results * MG SCREENING W APARNA ERIK DIGI (09/20/2022 9:14 AM CDT) Anatomical Region Laterality Modality Breast Bilateral Mammography 09/28/2022 6:01 PM CDT Narrative 09/28/2022 6:07 PM CDT IMAGING STUDIES: MG SCREENING W APARNA ERIK DIGI DATE: 09/20/2022 8:58 AM HISTORY: screening 52-year-old female for screening study. COMPARISON: 01/09/2021 from [facility]. Exam interpretation was delayed in order to obtain the comparison study. TECHNIQUE: Bilateral digital screening mammogram with CAD. Standard CC and MLO views. Additional right MLO view. 2-D imaging and 3-D tomography. DISCUSSION: Mild scattered fibroglandular tissue. Benign calcifications bilaterally. Small right axillary tail lymph node. No mammographically suspicious mass, microcalcification, or architectural distortion. IMPRESSION: 1. No mammographic evidence of malignancy. Recommend annual mammogram. 2. BI-RADS Category 2: Benign. 3. TISSUE TYPE: Category B - There are areas of scattered fibroglandular density. A) A negative report should not delay a biopsy if a dominant or clinically suspicious mass is present. B) Adenosis and dense breasts may obscure an underlying neoplasm. C) Study interpreted with computer aided detection. Ordered By: CARI BURGESS Interpreted By: Gage Zamorano, 09/28/2022 6:01 PM Cari Burgess MOLDER MACHINE-BC MAMMO Final Result from Last 3 Months or Most Recently Relevant to Health Maintenance Insurance [facility] Advance Directives * Full Code (Latest Code Status on File) Date Activated Date Inactivated Comments 05/10/2022 7:41 AM 05/10/2022 1:10 PM Care Teams Construction Supervisor/Carpenter Relationship Specialty Start Date End Date Geneva Alcala PA-C [address] [place] [address] PCP - General TECHNICAL SERVICE REPRESENTATIVE 01/13/25
[2025-05-21 06:50] VITALS: BP 134/82; PULSE 75; RESP 16; TEMP 36.3; O2SAT 100
--- NOTE | 2025-05-21 06:59 | P.PNAN_ITS ---
Anes - Initial Pre Proc Eval Procedure: Operation Date: 05/21/25 08:00 Proposed Procedures p Screening Colonoscopy - Parviz Hartmann MD Date/Time: 05/21/25 06:59 Surgeon: Parviz Hartmann MD Pre Op Diagnosis: Personal history of colon polyps, unspecified Patient Data Age: 55 Gender: F Height: 1.7 m Weight: 107.7 kg Last Vital Signs Temp 36.3 C L 05/21/25 06:50 Pulse 75 05/21/25 06:50 Resp 16 05/21/25 06:50 BP 134/82 05/21/25 06:50 Pulse Ox 100 05/21/25 06:50 O2 Del Method Room Air 05/21/25 06:50 Allergies Allergy/AdvReac Type Severity Reaction Status Date / Time aspirin Allergy Mild Ulcers Verified 05/21/25 06:49 ibuprofen Allergy Mild Ulcers Verified 05/21/25 06:49 naproxen Allergy Mild Ulcers Verified 05/21/25 06:49 bupropion (From Wellbutrin) AdvReac Intermediate extreme Verified 05/21/25 06:49 anxiety NSAIDS (Non-Steroidal AdvReac Mild Ulcers Verified 05/21/25 06:49 Anti-Inflamma Home Medications ?Medication ?Instructions ?Recorded ?Confirmed ?Type cyanocobalamin (vitamin B-12) 1,000 mcg subcut MONTHLY #10 mL 04/05/23 04/30/25 Rx 1,000 mcg/mL injection solution Held on 10/09/24. Instructions: .Provider Order syringe with needle 3 mL 25 gauge #12 ea 08/19/2304/12 Rx x 1 ([employer] Luer Lock Syringe with needle) benazepril 10 1 tablet PO DAILY #90 tabs 1 05/21/25 Rx mg-hydrochlorothiazide 12.5 mg tablet Held on 04/09/25. Instructions: .Provider Order sertraline 100 mg tablet See Rx Instructions .Route 1 06/27/24 05/21/25 Rx .COMPLEX #90 tabs levothyroxine 50 mcg tablet 50 mcg PO DAILY #90 tabs 1 07/13/24 05/21/25 Rx (Levoxyl) ondansetron 4 mg disintegrating 4 mg PO .q6 hours prn #4 tabs 05/12/25 Rx tablet Patient hx anesthesia problems: none Family hx anesthesia problems: none Results Review: All pre-operative results and documents have been reviewed as part of the pre- operative evaluation. [facility] Past Medical History Medical History (Updated 05/21/25 @ 07:00 by Pablo Mcdowell MD) Essential hypertension Mixed hyperlipidemia Hypothyroidism BMI 32.0-32.9,adult Surgical History Surgical History (Updated 05/21/25 @ 07:00 by Pablo Mcdowell MD) History of gastric bypass Family History Family History Mother Hypertension Other Cerebrovascular accident Family history of cardiovascular disease Family history of malignant neoplasm of male breast Social History Social History Smoking status: Never smoker Second hand tobacco smoke exposure: No Alcohol intake: current Alcohol use details: refused to answer Substance use: never Substance use type: does not use Other substance usage details: GUMMIES TO SLEEP Lack of Transportation: No Lack of Food: Never True Current Housing: I Have Housing Concerned About Future Housing: No Difficulty Paying Gas/Electric Bills: No Difficulty Paying for Meds: No Currently Unemployed: No Education: Bachelor's Degree Difficulty w/ Childcare or Family Care: No Living arrangements: with family Additional living arrangements comments: and son Occupation/Education: unemployed Additional occupation/education comments: stay at home mom Gender identity (if verbalized by the patient): Female Sexual Orientation (if Verbalized by the Patient): Straight or Heterosexual Spiritual care concerns: Yes Agree to blood products: Yes Anes - Eval Final PreProcedure Day of Procedure 05/21/25 06:59 Patient weight: obese Heart: regular rate and rhythm Lungs: clear to auscultation Airway: Mallampati scale class II Neurological: alert and oriented Last oral intake: >/= 8 hours ASA classification: III Emergent: no Anesthetic plan: proceed Anesthesia type and monitoring: general GIVS and standard monitoring Results Review: All pre-operative results and documents have been reviewed as part of the pre- operative evaluation. Informed Consent: The patient's anesthetic plan and its attendant risks and benefits were discussed with the patient/family/POA. Questions were solicited and answers pr ovided to the satisfaction of the patient/family/POA.
[2025-05-21] MEDS: LACTATED RINGERS 1,000 ML 150 ML IV CONT (07:02)
--- NOTE | 2025-05-21 08:33 | PM.IMHP2 ---
H&P: HPI History of Present Illness Date/Time: 05/21/25 08:33 Chief Complaint: History of colon polyps Narrative: The patient has a history of colonic polyps, the last colonoscopy was 5 years ago. Review of Systems Review of Systems: All systems reviewed & are unremarkable except as noted in HPI and below PMFSH Past Medical History Medical History (Updated 05/21/25 @ 07:00 by Pablo Mcdowell MD) Essential hypertension Mixed hyperlipidemia Hypothyroidism BMI 32.0-32.9,adult Surgical History Surgical History (Updated 05/21/25 @ 07:00 by Pablo Mcdowell MD) History of gastric bypass Family History Family History Mother Hypertension Other Cerebrovascular accident Family history of cardiovascular disease Family history of malignant neoplasm of male breast Social History Social History Smoking status: Never smoker Second hand tobacco smoke exposure: No Alcohol intake: current Alcohol use details: refused to answer Substance use: never Substance use type: does not use Other substance usage details: GUMMIES TO SLEEP Lack of Transportation: No Lack of Food: Never True Current Housing: I Have Housing Concerned About Future Housing: No Difficulty Paying Gas/Electric Bills: No Difficulty Paying for Meds: No Currently Unemployed: No Education: Bachelor's Degree Difficulty w/ Childcare or Family Care: No Living arrangements: with family Additional living arrangements comments: and son Occupation/Education: unemployed Additional occupation/education comments: stay at home mom Gender identity (if verbalized by the patient): Female Sexual Orientation (if Verbalized by the Patient): Straight or Heterosexual Spiritual care concerns: Yes Agree to blood products: Yes Meds Home Medications and Allergies Home Medications ?Medication ?Instructions ?Recorded ?Confirmed ?Type cyanocobalamin (vitamin B-12) 1,000 mcg subcut MONTHLY #10 mL 04/05/23 04/30/25 Rx 1,000 mcg/mL injection solution Held on 10/09/24. Instructions: .Provider Order syringe with needle 3 mL 25 gauge #12 ea 08/19/23 04/30/25 Rx x 1 ([employer] Luer Lock Syringe with needle) benazepril 10 1 tablet PO DAILY #90 tabs 04/09/25 05/21/25 Rx mg-hydrochlorothiazide 12.5 mg tablet Held on 04/09/25. Instructions: .Provider Order sertraline 100 mg tablet See Rx Instructions .Route 04/27/25 05/21/25 Rx .COMPLEX #90 tabs levothyroxine 50 mcg tablet 50 mcg PO DAILY #90 tabs 05/12/25 05/21/25 Rx (Levoxyl) ondansetron 4 mg disintegrating 4 mg PO .q6 hours prn #4 tabs 05/12/25 Rx tablet Allergies Allergy/AdvReac Type Severity Reaction Status Date / Time aspirin Allergy Mild Ulcers Verified 05/21/25 06:49 ibuprofen Allergy Mild Ulcers Verified 05/21/25 06:49 naproxen Allergy Mild Ulcers Verified 05/21/25 06:49 bupropion (From Wellbutrin) AdvReac Intermediate extreme Verified 05/21/25 06:49 anxiety NSAIDS (Non-Steroidal AdvReac Mild Ulcers Verified 05/21/25 06:49 Anti-Inflamma Vital Signs Vital Signs - 24 hr 05/21/25 06:50 Temperature 97.3 F L Pulse Rate 75 Respiratory Rate 16 Blood Pressure 134/82 Pulse Oximetry 100 Oxygen Delivery Room Air Exam Const: General: cooperative and healthy appearing Resp: Effort & Inspection: normal respiratory effort and able to speak in complete sentences Auscultation: clear to auscultation bilaterally Cardio: Rate: regular rate Rhythm: regular rhythm GI: Inspection: normal to inspection GI Palp: No No hepatosplenomegaly present Auscultation: normal bowel sounds Rectal Exam: deferred Skin: General skin exam: normal color Psych: Appearance: grossly normal Mental Status: mental status grossly normal Assessment and Plan Assessment and plan (1) Hx of colonic polyps: Code(s): Z86.0100 - Personal history of colon polyps, unspecified Status: Acute Assessment and Plan: The patient is deemed a good candidate for the procedure. Consent signed. Will proceed. Prior Studies I have reviewed the following patient records and this information was taken into consideration when formulating the assessment and plan.: previous labs, previous ER visits, previous hospitalizations and previous clinic visits
[2025-05-21 08:54] VITALS: BP 112/64; PULSE 65; RESP 16; O2SAT 100
[2025-05-21 09:04] VITALS: BP 112/75; PULSE 67; RESP 18; O2SAT 100
[2025-05-21 09:14] VITALS: BP 112/73; PULSE 67; RESP 20; O2SAT 100
== END 2025-05-21 09:21 | disposition home or self-care (01) ==
PROVIDERS: PCP Family Medicine; Referring Provider Physician Assistant Medical; Visit Provider Internal Medicine Gastroenterology
PROC: 0DJD8ZZ Inspection of Lower Intestinal Tract, Via Natural or Artificial Opening Endoscopic (ICD-10-PCS; CPT 45378; principal; 2025-05-21 08:00)
DX: Z12.11 Encounter for screening for malignant neoplasm of colon (principal); Z86.0100 Personal history of colon polyps, unspecified; E66.9 Obesity, unspecified; Z68.37 Body mass index [BMI] 37.0-37.9, adult
CPT/HCPCS: 45378; J2704; J7120